=== PATIENT | female | born 1950 | race African-American/Black ===

== ENCOUNTER 2020-05-30 14:38 | Outpatient (CLI) | payer OTHER, SELFPAY ==
[2020-05-30 15:15] LABS: Hemoglobin 12.6 g/dL (12.0-15.0); Mean Corpuscular HGB Conc 33.2 g/dl (32-36); Mean Corpuscular Hemoglobin 29.4 pg (26-34); Mean Corpuscular Volume 88.6 fl (80-100); Mean Platelet Volume 9.4 fl (7.4-10.4); Platelet Count Result 330 k/mm3 (150-375); Red Blood Count 4.29 M/mm3 (4.2-5.4); Red Cell Distribution Width 13.9 % (11.5-14.5); White Blood Count 7.1 K/mm3 (4.5-10.0)
[2020-05-30 15:30] LABS: Alanine Aminotransferase 12 U/L (4-35); Albumin Level 4.4 g/dL (3.5-5.1); Alkaline Phosphatase 82 U/L (38-126); Anion Gap 10 mmol/L (8-16); Aspartate Amino Transferase 24 U/L (14-36); Bilirubin,Total 0.8 mg/dL (0.2-1.3); Blood Urea Nitrogen 11 mg/dL (7-17); Calcium 9.1 mg/dL (8.4-10.2); Carbon Dioxide 23 mmol/L (22-30); Chloride 101 mmol/L (98-107); Estimated Glomerular Filt Rate > 60; Glucose 86 mg/dL (65-105); Sodium 134 mmol/L (137-145)
== END 2020-05-30 14:39 | disposition home or self-care (01) ==
LOC: ANHLAB 14:43
PROVIDERS: PCP Internal Medicine; Visit Provider Internal Medicine
DX: R10.12 Left upper quadrant pain (principal)
CPT/HCPCS: 36415; 80053; 85027

== ENCOUNTER 2022-02-12 11:55 | Outpatient (CLI) | payer OTHER, SELFPAY | END 2022-02-12 11:56 | disposition home or self-care (01) | LOC: ANHLAB 11:59 | PROVIDERS: PCP Internal Medicine; Visit Provider Internal Medicine | DX: R63.5 Abnormal weight gain (principal) | CPT/HCPCS: 36415; 84443 ==

== ENCOUNTER 2022-09-02 09:49 | Emergency (ER) | payer OTHER, SELFPAY ==
[2022-09-02 09:52] VITALS: BP 136/91; PULSE 16; RESP 20; TEMP 36.1; O2SAT 98
[2022-09-02] MEDS: OXYMETAZOLINE HCL 0.05% NAS 15 ML BTL (*BKC) 1 SPRAY NASAL (10:39)
--- NOTE | 2022-09-02 10:48 | ED.EPISTAXIS ---
HPI - Epistaxis General Chief complaint: Epistaxis Stated complaint: NOSEBLEED Time Seen by Provider: 09/02/22 10:08 History of Present Illness HPI Narrative: This is a 71-year-old female with past medical history of seasonal allergies and acne, who presents to the emergency department with epistaxis. She states approximately 1 hour prior to arrival, she had sudden onset brisk bilateral nose bleeding (left worse than right) she states she has not had bleeding before and does not take any blood thinners. She denies bleeding from other source, shortness of breath, chest pain or lightheadedness. She states the bleeding has since stopped. Related Data Home Medications Medication Instructions Recorded Confirmed albuterol sulfate 90 mcg/actuation inhalation 09/14/19 aerosol inhaler azelastine 137 mcg (0.1 %) nasal intranasal 09/14/19 spray aerosol fluticasone 100 mcg-salmeterol 50 inhalation 09/14/19 mcg/dose blistr powdr for inhalation (Advair Diskus) Allergies Allergy/AdvReac Type Severity Reaction Status Date / Time clindamycin Allergy Mild Verified 01/19/18 13:53 peanut Allergy Unknown shortness Verified 01/19/18 13:53 of breath, throat closing Penicillins Allergy Unknown Verified 01/19/18 13:53 Review of Systems Review of Systems: CONSTITUTIONAL: Denies fever, chills, or sweats. EYES: Denies visual changes, redness, or discharge. ENT: Denies rhinorrhea, congestion, sore throat, or otalgia. CARDIOVASCULAR: Denies chest pain, palpitations, or edema. RESPIRATORY: Denies cough or dyspnea. GASTROINTESTINAL: Denies abdominal pain, nausea, vomiting, or diarrhea. GENITOURINARY: Denies dysuria or hematuria. SKIN: Denies rash or itching. MUSCULOSKELETAL: Denies back pain, joint pain, or myalgia. NEUROLOGIC: Denies headache, numbness, dizziness, or weakness. PSYCHIATRIC: Denies anxiety or depression. [facility] Past Medical History Medical History Asthma Pneumonia Pneumothorax Surgical History Surgical History Hx of chest tube placement Hx of tonsillectomy Social History Social History Smoking status: Never smoker Exam Narrative: GENERAL: Well-appearing, well-nourished, and in no acute distress. HEAD: Normocephalic, atraumatic. EYES: PERRLA and EOMI. ENT: Nares clear, no rhinorrhea or epistaxis. Small amount of swelling of the left middle turbinate with some irritation of the mucosa, mucous membranes moist. Oropharynx without tonsillar hypertrophy exudate or other lesions. No noted bleeding in the posterior oropharynx. NECK: Supple. No adenopathy or masses. No carotid bruits or JVD CHEST: Clear to auscultation. No respiratory distress. No wheezes rales or rhonchi HEART: Regular rate and rhythm. No murmur heard. Normal peripheral pulses. ABDOMEN: Soft, nontender, nondistended, normal active bowel sounds. EXTREMITIES: Normal range of motion. No edema. SKIN: Warm, dry, no rash. NEURO: No focal deficits. Alert and oriented x3. PSYCH: Normal mood and affect. Course Course Emergency Course: 11:35 - No recurrent bleeding noted in the emergency department. Patient is hemodynamically stable. Will discharge. Discussed return and emergent precautions including signs/symptoms of persistent bleeding and symptomatic anemia. The patient voiced understanding and is comfortable with the plan. All questions answered to her satisfaction Vital Signs Vital signs: Vital Signs Temperature 97 F L 09/02/22 09:52 Pulse Rate 16 L 09/02/22 09:52 Respiratory Rate 20 09/02/22 09:52 Blood Pressure 136/91 H 09/02/22 09:52 Pulse Oximetry 98 09/02/22 09:52 Temperature 97 F L 09/02/22 09:52 Pulse Rate 16 L 09/02/22 09:52 Respiratory Rate 20 09/02/22 09:52 Blood Pressure 136/91 H 09/02/22 09:52 Pulse Oxime
== END 2022-09-02 11:41 | disposition home or self-care (01) ==
PROVIDERS: Emergency Provider Preventive Medicine Aerospace Medicine; PCP Internal Medicine
DX: R04.0 Epistaxis (principal); J45.909 Unspecified asthma, uncomplicated; Z87.01 Personal history of pneumonia (recurrent)
CPT/HCPCS: 99283; A9270

== ENCOUNTER 2023-12-07 07:20 | Outpatient (CLI) | payer OTHER, SELFPAY ==
[2023-12-07 08:15] LABS: Alanine Aminotransferase 17 U/L (6-35); Albumin Level 4.3 g/dL (3.5-5.1); Alkaline Phosphatase 72 U/L (38-126); Anion Gap 3 mmol/L (8-16); Aspartate Amino Transferase 25 U/L (14-36); Bilirubin,Total 0.7 mg/dL (0.2-1.3); Blood Urea Nitrogen 11 mg/dL (7-17); Calcium 9.4 mg/dL (8.4-10.2); Carbon Dioxide 32 mmol/L (22-30); Chloride 102 mmol/L (98-107); Cholesterol 199 mg/dL (0-200); Estimated Glomerular Filt Rate > 60; Glucose 80 mg/dL (65-110); HDL Direct 80 mg/dL; Potassium 3.9 mmol/L (3.4-5.0); Sodium 137 mmol/L (137-145); Triglycerides 44 mg/dL (<150)
[2023-12-07 08:26] LABS: LDL Cholesterol Direct 81 mg/dL
== END 2023-12-07 07:21 | disposition home or self-care (01) ==
PROVIDERS: PCP Internal Medicine
DX: L70.0 Acne vulgaris (principal)
CPT/HCPCS: 36415; 80053; 80061

== ENCOUNTER 2024-02-09 13:21 | Outpatient (CLI) | payer OTHER, SELFPAY ==
[2024-02-09 14:29] LABS: Thyroid Stimulating Hormone 0.844 uIU/mL (0.465-4.680)
== END 2024-02-09 13:22 | disposition home or self-care (01) ==
PROVIDERS: PCP Internal Medicine
DX: Z71.3 Dietary counseling and surveillance (principal); Z68.30 Body mass index [BMI] 30.0-30.9, adult
CPT/HCPCS: 36415; 84443